=== PATIENT | female | born 1950 | race Caucasian/White ===

== ENCOUNTER 2017-02-20 04:42 | Emergency (ER) | payer MEDICARE ==
[~2017-02-20] VITALS: Ht 165.1 cm; Wt 95.3 kg
[2017-02-20 07:07] LABS: Basophils # (auto) 0 uL; Eosinophils # (auto) 0 uL; Eosinophils % (auto) 0.2 % (0.0-7.0); Hematocrit 40.6 % (36.0-46.0); Hemoglobin 13.5 g/dL (12.2-16.2); Lymphocytes # (auto) 0.8 uL; Lymphocytes % (auto) 9.1 % (10.0-50.0); Mean Corpuscular Hemoglobin 29.5 pg (28.0-32.0); Mean Corpuscular Hgb Conc. 33.4 g/dL (32.0-36.0); Mean Corpuscular Volume 88.6 fL (80.0-100.0); Mean Platelet Volume 8.6 fL (7.4-10.4); Monocytes # (auto) 0.4 uL; Monocytes % (auto) 3.8 % (0.0-12.0); Neutrophils # (auto) 8.1 uL; Neutrophils % (auto) 86.9 % (37.0-80.0); Platelet Count (auto) 306 10^3/uL (140-450); Red Cell Distribution Width 14.4 % (11.6-16.0); White Blood Cell 9.3 10^3/uL (4.4-10.8)
[2017-02-20 07:22] LABS: Albumin 3.5 g/dL (3.4-5.0); Alkaline Phosphatase 90 U/L (45-117); Anion Gap 11 (5-15); Aspartate Aminotransferase 13 U/L (15-37); BUN/Creatinine Ratio 20.6; Bilirubin, Total 0.6 mg/dL (0.2-1.0); Blood Urea Nitrogen 14 mg/dL (7-18); Calcium 8.5 mg/dL (8.5-10.1); Carbon Dioxide 26 mmol/L (21-32); Chloride 109 mmol/L (98-107); GFR African American 110 mL/min; GFR Non-African American 91 mL/min; Glucose 157 mg/dL (74-106); Magnesium 2.2 mg/dL (1.6-2.6); Potassium 3.8 mmol/L (3.5-5.1); Sodium 146 mmol/L (136-145)
[2017-02-20 08:24] LABS: INR 1.03 (0.9-1.15); Prothrombin Time 10.6 sec (9.37-12.3)
[2017-02-20 08:36] LABS: Partial Thromboplastin Time 26.1 sec (22.64-33.71)
[2017-02-20 10:16] VITALS: BP 162/88
[2017-02-20 10:33] LABS: Urine Bilirubin Negative (Negative); Urine Blood Negative /uL (Negative); Urine Color Yellow (Yellow); Urine Glucose Normal (Normal); Urine Ketone TRACE (Negative); Urine Mucus FEW (None Seen); Urine Nitrite Negative (Negative); Urine RBC 16 /hpf (0 - 4); Urine Squamous Epithelial Cell FEW /hpf (<5); Urine Urobilinogen Normal (Negative); Urine pH 5.5 (5.0-8.0)
[2017-02-20] MEDS ORDERED: cefTRIAXone 1GM/50ML D5W 50 ML IV ONE (11:30)
== END 2017-02-20 12:38 | disposition home or self-care (01) ==
LOC: ER 04:45
DX: R51 Headache (principal); I25.2 Old myocardial infarction; N39.0 Urinary tract infection, site not specified; E16.2 Hypoglycemia, unspecified; R42 Dizziness and giddiness; E05.90 Thyrotoxicosis, unspecified without thyrotoxic crisis or storm
CPT/HCPCS: 36415; 70450; 71010; 80053; 81001; 83735; 84443; 84484; 85025; 85610; 85730; 93005; 96365; 99285; J0696

== ENCOUNTER 2022-07-04 12:51 | Inpatient (IN) | payer MEDICARE ==
[~2022-07-04] VITALS: Ht 165.1 cm; Wt 107.7 kg
[2022-07-04 13:31] LABS: Eosinophils # (auto) 0.1 10 ^3/uL (0-0.8); Monocytes # (auto) 0.9 10 ^3/uL (0-1.3); Monocytes % (auto) 8.4 % (0.0-12.0)
[2022-07-04 13:32] LABS: Basophils # (auto) 0.1 10 ^3/uL (0-0.2); Basophils % (auto) 0.6 % (0.0-2.0); Hematocrit 26.1 % (36.0-46.0); Hemoglobin 8.2 g/dL (12.2-16.2); Lymphocytes # (auto) 1.5 10 ^3/uL (0.4-5.4); Lymphocytes % (auto) 13.4 % (10.0-50.0); Mean Corpuscular Hemoglobin 28.4 pg (28.0-32.0); Mean Corpuscular Hgb Conc. 31.5 g/dL (32.0-36.0); Neutrophils # (auto) 8.4 10 ^3/uL (1.6-8.6); Neutrophils % (auto) 76.6 % (37.0-80.0); Nucleated Red Blood Cells % 0.2 %; Red Cell Distribution Width 15.7 % (11.8-14.3); White Blood Cell 10.9 10^3/uL (4.4-10.8)
[2022-07-04 13:41] LABS: INR 0.99 (0.9-1.15); Partial Thromboplastin Time 23.6 sec (24.6-33.4)
[2022-07-04 13:42] LABS: Albumin 3.2 g/dL (3.4-5.0); BUN/Creatinine Ratio 24.2; Calcium 8.1 mg/dL (8.5-10.1); Potassium 4.1 mmol/L (3.5-5.1)
[2022-07-04 13:45] LABS: Bilirubin, Total 0.3 mg/dL (0.2-1.0); Total Protein 6.1 g/dL (6.4-8.2)
[2022-07-04] MEDS ORDERED: PANTOPRAZOLE 40 MG/10 ML VIAL INJ IV ONE (14:15)
[2022-07-04] MEDS ORDERED: SODIUM CHLORIDE 0.9% 500 ML IV ONE (14:15)
[2022-07-04 19:37] LABS: Urine Bacteria FEW /hpf (None Seen); Urine Blood Negative /uL (Negative); Urine Hyaline Cast FEW /lpf (0 - 2); Urine Mucus FEW (None Seen); Urine Specific Gravity 1.024 (1.001-1.035); Urine WBC 14 /hpf (0 - 5)
[2022-07-04] MEDS: SODIUM CHLORIDE 0.9% 1,000 ML IV SCH (20:30)
[2022-07-04] MEDS: PANTOPRAZOLE 40 MG/10 ML VIAL INJ IV SCH (22:00)
[2022-07-04 22:03] LABS: Hematocrit 26.3 % (36.0-46.0); Hemoglobin 8.3 g/dL (12.2-16.2)
[2022-07-05 00:13] VITALS: BP 131/75
[2022-07-05] MEDS ORDERED: LEVO25TA6 PO (01:29)
[2022-07-05 04:45] LABS: Potassium 4.2 mmol/L (3.5-5.1)
[2022-07-05 04:50] LABS: Albumin 2.6 g/dL (3.4-5.0); BUN/Creatinine Ratio 25.9; Calcium 7.6 mg/dL (8.5-10.1)
[2022-07-05 04:51] LABS: Bilirubin, Total 0.4 mg/dL (0.2-1.0)
[2022-07-05] MEDS ORDERED: KETOROLAC TROMETH 30 MG/ML 1ML VIAL IV ONE (05:30)
[2022-07-05] MEDS: ONDANSETRON HCL 4 MG/2 ML VIAL IV PRN ×2 (05:35→21:32)
[2022-07-05] MEDS ORDERED: MORPHINE SULFATE INJ 2 MG/ml SYRG IV PRN (05:45)
[2022-07-05] MEDS: SODIUM CHLORIDE 0.9% 1,000 ML IV SCH ×2 (06:27→23:10)
[2022-07-05 09:00] VITALS: BP 124/79
[2022-07-05] MEDS: PANTOPRAZOLE 40 MG/10 ML VIAL INJ IV SCH ×2 (09:40→21:31)
[2022-07-05] MEDS ORDERED: PANTOPRAZOLE 40 MG TAB PO SCH (10:00)
[2022-07-05 10:44] LABS: Basophils # (auto) 0 10 ^3/uL (0-0.2); Eosinophils # (auto) 0 10 ^3/uL (0-0.8); Hemoglobin 7.3 g/dL (12.2-16.2); White Blood Cell 9.4 10^3/uL (4.4-10.8)
[2022-07-05 10:46] LABS: Basophils % (auto) 0.3 % (0.0-2.0); Eosinophils % (auto) 0.2 % (0.0-7.0); Hematocrit 22.1 % (36.0-46.0); Mean Corpuscular Hemoglobin 29.5 pg (28.0-32.0); Mean Corpuscular Hgb Conc. 32.9 g/dL (32.0-36.0); Mean Corpuscular Volume 89.7 fL (80.0-100.0); Monocytes # (auto) 0.5 10 ^3/uL (0-1.3); Monocytes % (auto) 5.1 % (0.0-12.0); Neutrophils # (auto) 7.8 10 ^3/uL (1.6-8.6); Neutrophils % (auto) 83.4 % (37.0-80.0); Nucleated Red Blood Cells % 0.2 %; Red Blood Cells 2.47 10^6/uL (4.0-5.20); Red Cell Distribution Width 15.6 % (11.8-14.3)
[2022-07-05] MEDS ORDERED: HYDROcodone-ACET 5/325MG TAB PO PRN (11:45)
[2022-07-05 13:00] VITALS: BP_SYST 119; BP_SYST 130; BP_DIAS 51; BP_DIAS 62
[2022-07-05] MEDS ORDERED: cefTRIAXone 1GM/50ML D5W 50 ML IV ONE (15:00)
[2022-07-05 16:17] LABS: Free T4 (Free Thyroxine) 1.02 ng/dL (0.89-1.76)
[2022-07-05 16:33] LABS: Folate (Folic Acid) 7.3 ng/mL (5.38-24)
[2022-07-05 17:00] VITALS: BP 135/65
[2022-07-05] MEDS: HYDROmorphone HCL 2 MG/ML VL/or syr IV PRN ×2 (17:00→21:00)
[2022-07-05] MEDS ORDERED: LORazepam 2MG/ML-1ML VIAL IV PRN (21:00)
[2022-07-05 21:16] LABS: Cholesterol 125 mg/dL (< 200)
[2022-07-05 21:20] LABS: HDL Cholesterol 30 mg/dL (40-59); LDL Cholesterol 83 mg/dL (< 100); Triglycerides 144 mg/dL (< 150)
[2022-07-05] MEDS: ATORVASTATIN 20 MG TAB PO SCH (22:00)
[2022-07-06 01:41] VITALS: BP 104/47
[2022-07-06 05:39] VITALS: BP 110/45
[2022-07-06 08:17] LABS: Basophils # (auto) 0 10 ^3/uL (0-0.2); Eosinophils # (auto) 0 10 ^3/uL (0-0.8); Eosinophils % (auto) 0.3 % (0.0-7.0); Hematocrit 21.5 % (36.0-46.0); Lymphocytes # (auto) 1.1 10 ^3/uL (0.4-5.4); Monocytes # (auto) 0.7 10 ^3/uL (0-1.3)
[2022-07-06 08:20] LABS: Basophils % (auto) 0.3 % (0.0-2.0); Lymphocytes % (auto) 10.2 % (10.0-50.0); Mean Corpuscular Hgb Conc. 31.3 g/dL (32.0-36.0); Mean Corpuscular Volume 92.7 fL (80.0-100.0); Monocytes % (auto) 6.6 % (0.0-12.0); Neutrophils # (auto) 8.8 10 ^3/uL (1.6-8.6); Neutrophils % (auto) 82.6 % (37.0-80.0); Nucleated Red Blood Cells % 0.2 %; Red Blood Cells 2.32 10^6/uL (4.0-5.20); Red Cell Distribution Width 16.2 % (11.8-14.3); White Blood Cell 10.7 10^3/uL (4.4-10.8)
[2022-07-06 08:28] LABS: Hemoglobin 6.7 g/dL (12.2-16.2)
[2022-07-06 09:00] VITALS: BP 129/48
[2022-07-06] MEDS: cefTRIAXone 1GM/50ML D5W 50 ML IV SCH (10:32)
[2022-07-06] MEDS: ONDANSETRON HCL 4 MG/2 ML VIAL IV PRN ×3 (10:32→21:25)
[2022-07-06] MEDS: PANTOPRAZOLE 40 MG/10 ML VIAL INJ IV SCH ×2 (10:32→21:23)
[2022-07-06] MEDS: HYDROmorphone HCL 2 MG/ML VL/or syr IV PRN ×3 (10:33→21:26)
[2022-07-06] MEDS ORDERED: LORATADINE 10 MG TAB PO PRN (12:00)
[2022-07-06] MEDS ORDERED: CYANOCOBALAMIN (B-12) 1000 MCG/1 ML VIAL IM ONE (12:00)
[2022-07-06] MEDS ORDERED: ACETAMINOPHEN 500 MG TAB PO ONE (12:00)
[2022-07-06 13:00] VITALS: BP 145/55
[2022-07-06] MEDS: SODIUM CHLORIDE 0.9% 1,000 ML IV SCH (16:19)
[2022-07-06 17:00] VITALS: BP 107/41
[2022-07-06] MEDS: ATORVASTATIN 20 MG TAB PO SCH (21:26)
[2022-07-06 22:00] VITALS: BP 115/48
[2022-07-07] VITALS (9 sets, daily range): BP systolic 117–151; BP diastolic 43–69
[2022-07-07] MEDS: diphenhdrAMINE HCL 25 MG CAP PO PRN ×2 (02:37→18:18)
[2022-07-07] MEDS: SODIUM CHLORIDE 0.9% 1,000 ML IV SCH ×2 (03:02→15:10)
[2022-07-07 07:47] LABS: Basophils # (auto) 0.1 10 ^3/uL (0-0.2); Basophils % (auto) 0.8 % (0.0-2.0); Eosinophils # (auto) 0.2 10 ^3/uL (0-0.8); Eosinophils % (auto) 1.8 % (0.0-7.0); Hematocrit 25.8 % (36.0-46.0); Hemoglobin 8.3 g/dL (12.2-16.2); Lymphocytes # (auto) 1.4 10 ^3/uL (0.4-5.4); Lymphocytes % (auto) 14.1 % (10.0-50.0); Mean Corpuscular Hemoglobin 29.8 pg (28.0-32.0); Mean Corpuscular Hgb Conc. 32.1 g/dL (32.0-36.0); Mean Corpuscular Volume 92.8 fL (80.0-100.0); Monocytes # (auto) 0.8 10 ^3/uL (0-1.3); Monocytes % (auto) 7.8 % (0.0-12.0); Neutrophils # (auto) 7.4 10 ^3/uL (1.6-8.6); Neutrophils % (auto) 75.5 % (37.0-80.0); Nucleated Red Blood Cells % 2.1 %; Red Blood Cells 2.77 10^6/uL (4.0-5.20); White Blood Cell 9.8 10^3/uL (4.4-10.8)
[2022-07-07 08:04] LABS: Potassium 4.4 mmol/L (3.5-5.1)
[2022-07-07 08:13] LABS: BUN/Creatinine Ratio 18.8; Calcium 8.1 mg/dL (8.5-10.1)
[2022-07-07] MEDS ORDERED: CYANOCOBALAMIN (B-12) 1000 MCG/1 ML VIAL IM SCH (10:00)
[2022-07-07] MEDS: cefTRIAXone 1GM/50ML D5W 50 ML IV SCH (10:33)
[2022-07-07] MEDS: PANTOPRAZOLE 40 MG/10 ML VIAL INJ IV SCH ×2 (10:35→21:22)
[2022-07-07] MEDS: ONDANSETRON HCL 4 MG/2 ML VIAL IV PRN ×2 (10:36→16:19)
[2022-07-07] MEDS: HYDROmorphone HCL 2 MG/ML VL/or syr IV PRN ×2 (10:37→16:19)
[2022-07-07] MEDS: ACETAMINOPHEN 325 MG TAB PO PRN (13:24)
[2022-07-07] MEDS ORDERED: CYANOCOBALAMIN (B-12) 1000 MCG/1 ML VIAL IM ONE (20:00)
[2022-07-07] MEDS: ATORVASTATIN 20 MG TAB PO SCH (21:11)
[2022-07-08] MEDS: ACETAMINOPHEN 325 MG TAB PO PRN (01:10)
[2022-07-08] MEDS: diphenhdrAMINE HCL 25 MG CAP PO PRN (01:10)
[2022-07-08] MEDS: SODIUM CHLORIDE 0.9% 1,000 ML IV SCH (01:20)
[2022-07-08 05:17] VITALS: BP 146/46
[2022-07-08] MEDS ORDERED: HYDROcodone-ACET 5/325MG TAB PO ONE (07:00)
[2022-07-08 08:19] LABS: BUN/Creatinine Ratio 14.4; Calcium 7.6 mg/dL (8.5-10.1); Potassium 4.5 mmol/L (3.5-5.1)
[2022-07-08] MEDS: cefTRIAXone 1GM/50ML D5W 50 ML IV SCH (09:00)
[2022-07-08 09:08] VITALS: BP 160/65
[2022-07-08] MEDS: FOLIC ACID 1 MG TAB PO SCH (09:17)
[2022-07-08] MEDS: CYANOCOBALAMIN 500 MCG TAB PO SCH (09:17)
[2022-07-08] MEDS: PANTOPRAZOLE 40 MG/10 ML VIAL INJ IV SCH ×2 (09:17→21:35)
[2022-07-08 09:18] LABS: Basophils # (auto) 0 10 ^3/uL (0-0.2); Basophils % (auto) 0.4 % (0.0-2.0); Eosinophils # (auto) 0.2 10 ^3/uL (0-0.8); Hemoglobin 7.9 g/dL (12.2-16.2); Lymphocytes # (auto) 0.8 10 ^3/uL (0.4-5.4); Monocytes # (auto) 0.7 10 ^3/uL (0-1.3)
[2022-07-08 09:20] LABS: Eosinophils % (auto) 2.4 % (0.0-7.0); Hematocrit 24.8 % (36.0-46.0); Mean Corpuscular Hemoglobin 28.9 pg (28.0-32.0); Mean Corpuscular Hgb Conc. 31.7 g/dL (32.0-36.0); Mean Corpuscular Volume 91.2 fL (80.0-100.0); Neutrophils # (auto) 6.6 10 ^3/uL (1.6-8.6); Neutrophils % (auto) 79.2 % (37.0-80.0); Nucleated Red Blood Cells % 0.4 %; Red Blood Cells 2.72 10^6/uL (4.0-5.20); Red Cell Distribution Width 15.7 % (11.8-14.3); White Blood Cell 8.4 10^3/uL (4.4-10.8)
[2022-07-08 10:12] VITALS: BP 145/86
[2022-07-08] MEDS: PYRIDOXINE HCL 50 MG TAB PO SCH (11:09)
[2022-07-08] MEDS ORDERED: LEVOTHYROXINE SODIUM 25 MCG TAB PO ONE (12:30)
[2022-07-08 13:00] VITALS: BP 155/95
[2022-07-08 17:00] VITALS: BP 123/92
[2022-07-08] MEDS: ATORVASTATIN 20 MG TAB PO SCH (21:35)
[2022-07-08 22:00] VITALS: BP 122/65
[2022-07-09] VITALS (7 sets, daily range): BP systolic 124–149; BP diastolic 62–87
[2022-07-09] MEDS: HYDROmorphone HCL 2 MG/ML VL/or syr IV PRN (02:53)
[2022-07-09 06:04] LABS: Basophils # (auto) 0 10 ^3/uL (0-0.2); Eosinophils # (auto) 0.1 10 ^3/uL (0-0.8); Lymphocytes # (auto) 0.9 10 ^3/uL (0.4-5.4); Lymphocytes % (auto) 9.4 % (10.0-50.0)
[2022-07-09 06:07] LABS: Basophils % (auto) 0.4 % (0.0-2.0); Eosinophils % (auto) 1.2 % (0.0-7.0); Hematocrit 25.8 % (36.0-46.0); Hemoglobin 8.2 g/dL (12.2-16.2); Mean Corpuscular Hemoglobin 29.4 pg (28.0-32.0); Mean Corpuscular Hgb Conc. 31.6 g/dL (32.0-36.0); Monocytes # (auto) 0.9 10 ^3/uL (0-1.3); Neutrophils # (auto) 7.8 10 ^3/uL (1.6-8.6); Nucleated Red Blood Cells % 0.3 %; Red Blood Cells 2.78 10^6/uL (4.0-5.20); Red Cell Distribution Width 15.9 % (11.8-14.3); White Blood Cell 9.8 10^3/uL (4.4-10.8)
[2022-07-09] MEDS: LEVOTHYROXINE SODIUM 25 MCG TAB PO SCH (06:26)
[2022-07-09] MEDS: cefTRIAXone 1GM/50ML D5W 50 ML IV SCH (08:04)
[2022-07-09] MEDS: PANTOPRAZOLE 40 MG/10 ML VIAL INJ IV SCH (10:43)
[2022-07-09] MEDS: CYANOCOBALAMIN 500 MCG TAB PO SCH (10:43)
[2022-07-09] MEDS: FOLIC ACID 1 MG TAB PO SCH (10:44)
[2022-07-09] MEDS: PYRIDOXINE HCL 50 MG TAB PO SCH (11:13)
[2022-07-09] MEDS: PANTOPRAZOLE 40 MG TAB PO SCH (22:03)
[2022-07-09] MEDS: ATORVASTATIN 20 MG TAB PO SCH (22:04)
[2022-07-10 05:00] VITALS: BP 115/83
[2022-07-10] MEDS: LEVOTHYROXINE SODIUM 25 MCG TAB PO SCH ×2 (06:12→09:06)
[2022-07-10 08:00] VITALS: BP 115/80
[2022-07-10] MEDS: CYANOCOBALAMIN 500 MCG TAB PO SCH (09:06)
[2022-07-10] MEDS: cefTRIAXone 1GM/50ML D5W 50 ML IV SCH (09:06)
[2022-07-10] MEDS: FOLIC ACID 1 MG TAB PO SCH (09:06)
[2022-07-10] MEDS: PYRIDOXINE HCL 50 MG TAB PO SCH (09:06)
[2022-07-10] MEDS: PANTOPRAZOLE 40 MG TAB PO SCH ×2 (09:06→22:26)
[2022-07-10 09:20] VITALS: BP 139/74
[2022-07-10 13:00] VITALS: BP 127/60
[2022-07-10 17:30] VITALS: BP 138/81
[2022-07-10] MEDS: diphenhdrAMINE HCL 25 MG CAP PO PRN (17:48)
[2022-07-10 21:47] VITALS: BP 137/62
[2022-07-10] MEDS: ATORVASTATIN 20 MG TAB PO SCH (22:25)
[2022-07-11 05:00] VITALS: BP 142/66
[2022-07-11] MEDS: traMADol HCL 50 MG TAB PO PRN (07:11)
[2022-07-11 07:33] LABS: Basophils # (auto) 0 10 ^3/uL (0-0.2); Eosinophils # (auto) 0.3 10 ^3/uL (0-0.8); Eosinophils % (auto) 3.8 % (0.0-7.0); Hematocrit 25.4 % (36.0-46.0); Red Blood Cells 2.77 10^6/uL (4.0-5.20); Red Cell Distribution Width 15.7 % (11.8-14.3); White Blood Cell 7.3 10^3/uL (4.4-10.8)
[2022-07-11 07:35] LABS: Basophils % (auto) 0.5 % (0.0-2.0); Hemoglobin 8.3 g/dL (12.2-16.2); Lymphocytes % (auto) 14.2 % (10.0-50.0); Mean Corpuscular Hemoglobin 29.8 pg (28.0-32.0); Mean Corpuscular Hgb Conc. 32.5 g/dL (32.0-36.0); Mean Corpuscular Volume 91.6 fL (80.0-100.0); Monocytes % (auto) 13.5 % (0.0-12.0); Nucleated Red Blood Cells % 0.2 %
[2022-07-11 09:00] VITALS: BP 152/58
[2022-07-11] MEDS: cefTRIAXone 1GM/50ML D5W 50 ML IV SCH (09:30)
[2022-07-11] MEDS: PANTOPRAZOLE 40 MG TAB PO SCH ×2 (09:35→22:27)
[2022-07-11] MEDS: FOLIC ACID 1 MG TAB PO SCH (09:35)
[2022-07-11] MEDS: CYANOCOBALAMIN 500 MCG TAB PO SCH (09:35)
[2022-07-11] MEDS: PYRIDOXINE HCL 50 MG TAB PO SCH (09:35)
[2022-07-11] MEDS: diphenhdrAMINE HCL 25 MG CAP PO PRN (12:57)
[2022-07-11 13:00] VITALS: BP 146/54
[2022-07-11 17:00] VITALS: BP 156/70
[2022-07-11 22:00] VITALS: BP 143/78
[2022-07-11] MEDS: ATORVASTATIN 20 MG TAB PO SCH (22:27)
[2022-07-12 05:00] VITALS: BP 137/82
[2022-07-12] MEDS: LEVOTHYROXINE SODIUM 25 MCG TAB PO SCH (06:52)
[2022-07-12 09:00] VITALS: BP 148/71
[2022-07-12] MEDS: PANTOPRAZOLE 40 MG TAB PO SCH (09:15)
[2022-07-12] MEDS: cefTRIAXone 1GM/50ML D5W 50 ML IV SCH (09:15)
[2022-07-12] MEDS: FOLIC ACID 1 MG TAB PO SCH (09:15)
[2022-07-12] MEDS: PYRIDOXINE HCL 50 MG TAB PO SCH (09:15)
[2022-07-12] MEDS: CYANOCOBALAMIN 500 MCG TAB PO SCH (09:15)
[2022-07-12] MEDS: traMADol HCL 50 MG TAB PO PRN (09:19)
== END 2022-07-12 13:25 | disposition hospice, home (50) | DRG 377 ==
LOC: ER 12:51 → OVERFLOW 20:27 → WEST WING 23:15
PROVIDERS: ADMIT Nurse Practitioner; ATTEND Internal Medicine
PROC: 30233N1 Transfusion of Nonautologous Red Blood Cells into Peripheral Vein, Percutaneous Approach (ICD-10-PCS; principal; 2022-07-07)
DX: K57.91 Diverticulosis of intestine, part unspecified, without perforation or abscess with bleeding (principal); G93.41 Metabolic encephalopathy; I63.531 Cerebral infarction due to unspecified occlusion or stenosis of right posterior cerebral artery; N17.9 Acute kidney failure, unspecified; N39.0 Urinary tract infection, site not specified; G30.9 Alzheimer's disease, unspecified; D51.9 Vitamin B12 deficiency anemia, unspecified; Z20.822 Contact with and (suspected) exposure to COVID-19; Z66 Do not resuscitate; E03.9 Hypothyroidism, unspecified; I25.10 Atherosclerotic heart disease of native coronary artery without angina pectoris; D64.9 Anemia, unspecified; E66.9 Obesity, unspecified; N20.0 Calculus of kidney; G62.9 Polyneuropathy, unspecified; K83.8 Other specified diseases of biliary tract; I25.2 Old myocardial infarction; Z88.0 Allergy status to penicillin; Z88.8 Allergy status to other drugs, medicaments and biological substances; Z68.35 Body mass index [BMI] 35.0-35.9, adult; Z90.49 Acquired absence of other specified parts of digestive tract
CPT/HCPCS: 36415; 70450; 74176; 80048; 80053; 80061; 81001; 82270; 82378; 82607; 82746; 83090; 84439; 84443; 85014; 85018; 85025; 85610; 85730; 86850; 86900; 86901; 86920; 92610; 93306; 93886; 96361; 96374; C9113; G0378; J0696; J1885; J2405; J7042